=== PATIENT | male | born 1975 | race Caucasian/White ===

== ENCOUNTER 2020-02-16 08:52 | Emergency (ER) | payer OTHER, SELFPAY ==
--- NOTE | 2020-02-16 09:01 | ED.EYEPROB ---
HPI - Eye Problem General Chief complaint: Eye Problems Stated complaint: left eye pain Time Seen by Provider: 02/16/20 09:01 Source: patient and RN notes reviewed History of Present Illness HPI Narrative: Patient is a 44-year-old male who presents the urgent care with complaints of left eye redness and possible foreign body. 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 Patient states that he washed it out immediately at work multiple times with the eyewash station. Patient states that he believes he did remove the foreign body however he woke up this morning with increased redness to the left eye. Patient denies of any vision change, pain to the eye, or sensitivity to light. Patient does not wear contacts or eyeglasses. Denies of any known trauma with the exception of foreign body. No other acute complaints. No acute distress noted. Patient aware of the plan of care. Some parts of this dictation were generated by voice recognition software and may contain typographical and/or grammatical inaccuracies. Related Data Allergies Allergy/AdvReac Type Severity Reaction Status Date / Time Sulfa (Sulfonamide Allergy Unknown DOESN'T Verified 02/16/20 09:23 Antibiotics) REMEMBER, WAS 4 YRS OLD Review of Systems Review of Systems: Narrative: CONSTITUTIONAL: Denies fever, chills, or sweats. EYES: Reports of redness and possible foreign body to the left eye without vision change or pain ENT: Denies rhinorrhea, congestion, sore throat, or otalgia. CARDIOVASCULAR: Denies chest pain, palpitations, or edema. RESPIRATORY: Denies cough or dyspnea. GASTROINTESTINAL: Denies abdominal pain, nausea, vomiting, or diarrhea. GENITOURINARY: Denies dysuria or hematuria. SKIN: Denies rash or itching. MUSCULOSKELETAL: Denies back pain, joint pain, or myalgia. NEUROLOGIC: Denies headache, numbness, or weakness. All other systems reviewed are negative, except as documented in HPI. PMFSH Social History Social History Gender identity (if verbalized by the patient): Male Comments At the time of my signature, I reviewed and agree with the nursing past medical, surgical, social, and family history. There is no relevant family history pertinent to the patient complaint. Exam Narrative: Exam Narrative: GENERAL: This is a well-nourished, well-developed patient, in no apparent distress. HEAD: normocephalic, atraumatic. EYES: PERRL. Left sclera clear/white. Possible corneal abrasion with notable subconjunctival hemorrhage to the lateral aspect of the left eye without any surrounding eye edema or erythema. Vision is grossly intact. EARS: External ears normal NOSE: External nose normal with no obvious nasal discharge, nares without redness, no rhinorrhea. THROAT: Mucous membranes moist NECK: Neck supple SKIN: warm, intact with no suspicious lesions or rash, good texture and turgor. NEURO: awake, alert, and oriented to person, place and time. There were no obvious focal neurologic abnormalities. EXTREMITIES: No clubbing, cyanosis, or edema. Course Vital Signs Vital signs: Vital Signs Temperature 99.4 F 02/16/20 09:16 Pulse Rate 92 02/16/20 09:16 Respiratory Rate 16 02/16/20 09:16 Blood Pressure 151/98 H 02/16/20 09:16 Pulse Oximetry 99 02/16/20 09:16 Temperature 99.4 F 02/16/20 09:16 Pulse Rate 92 02/16/20 09:16 Respiratory Rate 16 02/16/20 09:16 Blood Pressure 151/98 H 02/16/20 09:16 Pulse Oximetry 99 02/16/20 09:16 Reviewed-patient is informed that they may have pre-hypertension or hypertension based on a blood pressure reading in the department. I recommend the patient call the primary care provider listed on their discharge instructions or a physician of their choice this week to arrange follow-up for further evaluation of possible pre-hypertension or hypertension. MDM - Eye Problem MDM Narrative Medical decision m
[2020-02-16 09:16] VITALS: BP 151/98; PULSE 92; RESP 16; TEMP 37.4; O2SAT 99
== END 2020-02-16 09:30 | disposition home or self-care (01) ==
PROVIDERS: Emergency Provider Nurse Practitioner Family
DX: H11.32 Conjunctival hemorrhage, left eye (principal)
CPT/HCPCS: 99213; G0463